=== PATIENT | male | born 1995 | race Caucasian/White ===

== ENCOUNTER 2021-03-05 17:20 | Observation (INO) ==
[2021-03-05] MEDS ORDERED: Naloxone 0.4 MG/ML INJ IVP PRN (22:32)
[2021-03-05] MEDS ORDERED: Ondansetron 4 MG/2 ML VIAL IVP PRN (22:32)
[2021-03-05] MEDS ORDERED: Ketorolac 30 MG/ML VIAL IVP PRN (22:32)
[2021-03-05] MEDS ORDERED: Acetaminophen 325 MG TABLET PO PRN (22:32)
[2021-03-05] MEDS ORDERED: 0.9 % Sodium Chloride 1,000 ML IVC SCH (22:45)
[2021-03-06 05:20] LABS: Hematocrit 42.1 % (37.5-50.1); Mean Corpuscular HGB Conc 33.3 g/dL (31.6-35.5); Mean Corpuscular Hemoglobin 29.7 pg (28.0-33.3); Mean Corpuscular Volume 89.2 fL (83.0-100.0); Mean Platelet Volume 9.6 fL (9.4-12.4); Platelet Count 398 K/mcL (140-400); Red Blood Count 4.72 M/mcL (4.19-5.50); Red Cell Distribution Width 12.5 % (11.5-14.5); White Blood Count 13.1 K/mcL (4.3-11.1)
[2021-03-06 05:36] LABS: BUN/Creatinine Ratio 19 (6-26); Blood Urea Nitrogen 15 mg/dL (6-20); Calcium 8.9 mg/dL (8.6-10.3); Carbon Dioxide 24 mEq/L (23-29); Chloride 105 mEq/L (98-107); Glucose 158 mg/dL (70-105); Osmolality,Calculated 288 (280-300); Potassium 4.3 mEq/L (3.5-5.1); Sodium 137 mEq/L (136-145); eGFR For African Americans > 60 (> 60); eGFR For Non-African Americans > 60 (> 60)
[2021-03-06 11:20] VITALS: BP 128/77; PULSE 75; TEMP 97.8; O2SAT 97
== END 2021-03-06 13:20 | disposition home or self-care (01) ==
LOC: EMEROOARM 17:20 → 4WAOSI 17:20 → SUATTDRO 22:06 → 4WAOSI 03-06
PROVIDERS: ADMIT Internal Medicine; ATTEND Family Medicine